=== PATIENT | female | born 1975 | race Caucasian/White ===

== ENCOUNTER 2017-03-24 19:18 | Emergency (ER) | payer MEDICAID ==
[2017-03-24] MEDS: IBUPROFEN 600 MG TAB PO (23:54)
== END 2017-03-24 23:58 | disposition home or self-care (01) ==
LOC: FTE 19:18
DX: R07.0 Pain in throat (principal)
CPT/HCPCS: 70360; 70490; 99284-25

== ENCOUNTER 2017-03-30 19:27 | Emergency (ER) | payer SELFPAY, MEDICAID | END 2017-03-31 00:22 | disposition left against medical advice (07) | LOC: FTE 19:27 | DX: Z53.21 Procedure and treatment not carried out due to patient leaving prior to being seen by health care provider (principal) ==

== ENCOUNTER 2017-04-01 16:14 | Emergency (ER) | payer MEDICAID ==
[2017-04-01] MEDS: ONDANSETRON (ODT) 4 MG TAB ODT (19:01)
== END 2017-04-01 19:23 | disposition home or self-care (01) ==
LOC: FTE 16:14
DX: R07.0 Pain in throat (principal)
CPT/HCPCS: 99283; Z7502

== ENCOUNTER 2017-07-31 10:39 | Emergency (ER) | payer MEDICAID ==
[2017-07-31] MEDS: TETRACAINE 0.5% 4 ML OPH RIGHT EYE (11:08)
[2017-07-31] MEDS: FLUORESCEIN STRIP RIGHT EYE (11:08)
[2017-07-31] MEDS: DIPHENHYDRAMINE 50 MG CAP PO (11:28)
[2017-07-31] MEDS: DEXAMETHASONE 4 MG TAB PO (11:29)
== END 2017-07-31 12:16 | disposition home or self-care (01) ==
LOC: FTE 10:39
DX: H02.842 Edema of right lower eyelid (principal)
CPT/HCPCS: 99283; Z7502

== ENCOUNTER 2018-02-04 04:30 | Emergency (ER) | payer MEDICAID ==
[2018-02-04] MEDS: DEXAMETHASONE 10 MG/ML 1 ML INJ IM (05:51)
[2018-02-04] MEDS: FAMOTIDINE 20 MG TAB PO (05:51)
[2018-02-04] MEDS: DIPHENHYDRAMINE 25 MG CAP PO (05:52)
[2018-02-04 06:06] LABS: ADD UMIC YES; UR ASCORBIC ACID NEGATIVE (NEGATIVE); UR BACTERIA FEW /HPF (NONE SEEN); UR BILIRUBIN (Dip) NEGATIVE (NEGATIVE); UR BLOOD (Dip) 2+ mg/dL (NEGATIVE); UR CLARITY CLOUDY (CLEAR); UR COLOR YELLOW (YELLOW); UR GLUCOSE (Dip) NEGATIVE (NEGATIVE); UR KETONES (Dip) NEGATIVE (NEGATIVE); UR LEUKOCYTE ESTERASE (Dip) 3+ Leu/ul (NEGATIVE); UR NITRITE (Dip) NEGATIVE (NEGATIVE); UR RBC 11 /HPF (0-5); UR SPECIFIC GRAVITY (Dip) 1.021 (1.003-1.030); UR SQUAMOUS EPITHELIAL CELL MODERATE /HPF (FEW); UR TOTAL PROTEIN (Dip) 1+ mg/dl (NEGATIVE); UR UROBILINOGEN (Dip) NEGATIVE (NEGATIVE); UR WBC 22 /HPF (0-5)
== END 2018-02-04 06:30 | disposition home or self-care (01) ==
LOC: FTE 06:30
DX: R22.0 Localized swelling, mass and lump, head (principal); F41.9 Anxiety disorder, unspecified; N39.0 Urinary tract infection, site not specified
CPT/HCPCS: 81001; 84703; 87086; 96372; 99284-25

== ENCOUNTER 2018-05-22 16:19 | Emergency (ER) | payer MEDICAID ==
[2018-05-22] MEDS: METOCLOPRAMIDE 10 MG INJ IM (19:29)
[2018-05-22] MEDS: traMADol 50 MG TAB PO (19:29)
== END 2018-05-22 20:30 | disposition home or self-care (01) ==
LOC: FTE 16:19
DX: R51 Headache (principal)
CPT/HCPCS: 70450; 81025; 96372; 99285-25